=== PATIENT | female | born 2000 | race Caucasian/White ===

== ENCOUNTER 2024-01-08 06:51 | Outpatient (RCR) | payer OTHER, SELFPAY | END 2024-01-08 23:59 | disposition home or self-care (01) | LOC: RPT 06:51 | PROVIDERS: ATTENDING PHYSICIAN Physician Assistant; FAMILY PHYSICIAN Family Medicine | DX: M25.562 Pain in left knee (principal); M62.81 Muscle weakness (generalized); Z73.6 Limitation of activities due to disability | CPT/HCPCS: 97110; 97140; 97162 ==